=== PATIENT | male | born 1970 | race Caucasian/White ===

== ENCOUNTER → 2017-12-01 15:02 | Outpatient (CLI) | payer BC, SELFPAY | PROVIDERS: PCP Nurse Practitioner Family; Visit Provider Nurse Practitioner Family | DX: G31.84 Mild cognitive impairment of uncertain or unknown etiology (principal) | CPT/HCPCS: 95806 ==

== ENCOUNTER 2019-08-05 15:16 | Outpatient (CLI) | payer BC, SELFPAY ==
[2019-08-05 15:26] VITALS: BP 111/80; PULSE 97; RESP 20; TEMP 36.8; O2SAT 99
[2019-08-05 15:56] VITALS: BP 119/79; PULSE 92; RESP 20; O2SAT 98
[2019-08-05 16:26] VITALS: BP 119/76; PULSE 89; RESP 20; O2SAT 99
[2019-08-05 16:56] VITALS: BP 116/72; PULSE 91; RESP 20; O2SAT 98
[2019-08-05 17:26] VITALS: BP 121/77; PULSE 88; RESP 20; O2SAT 99
== END 2019-08-05 17:39 | disposition home or self-care (01) ==
LOC: RAD 15:17
PROVIDERS: PCP Nurse Practitioner Family; Visit Provider Nurse Practitioner Family
DX: R11.2 Nausea with vomiting, unspecified (principal)
CPT/HCPCS: 96360; 96361

== ENCOUNTER → 2019-10-02 11:15 | Outpatient (CLI) | payer BC, SELFPAY ==
--- NOTE | 2019-10-02 11:22 | CT_ITS ---
PROCEDURE: CT ABDOMEN W CON CLINICAL HISTORY: ABD BLOATING, UPPER ABD PAIN COMPARISON: No exams were available for comparison TECHNIQUE: Axial images obtained with sagittal and coronal reformats. All CT scans at the facility use one or more dose reduction, viz: automated exposure control, ma/kV adjustment per patient size (including targeted exams where dose is matched to indication, i.e. head), or iterative reconstruction technique. FINDINGS: There are mild atelectatic or fibrotic changes in the lung bases with a calcified granuloma in the right middle lobe. On the initial images there is a subtle area of decreased attenuation within the medial segment of the left hepatic lobe. This is seen on series 3, image 33 measuring approximately 6 mm. This is too small to categorize and is not identified on the delayed images. The gallbladder and adrenal glands have an unremarkable appearance. There is splenomegaly at 14 cm. Unremarkable appearing pancreas. There are some small periportal lymph nodes some of which contain calcification. These nodes measure up to 1.5 cm and are nonspecific. There is a complex retroperitoneal mass epicentered in the left psoas muscle. This mass measures 10 cm cephalad caudad, 7.9 cm transverse, and 6 cm AP. The superior and majority of the mass is low density measuring -37 Hounsfield units having the appearance of dirty fat . This mass begins at the L1-L2 level and extends inferiorly to the mid L5 level. Along the inferior aspect of this mass there is increased density measuring up to 61 Hounsfield units. This is displacing the left kidney anteriorly and there is not a good fat plane between the anterior lateral aspect of the mass and the posterior aspect of the left kidney. There is also not a good fat plane between the medial aspect of the mass and the L2-L3 paravertebral soft tissues. 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 There is an additional lesion involving the left ileo psoas muscle measuring 3.4 by 2.4 by 3.5 cm. This does appear to be separate from the larger mass. This lesion also has a dirty fat appearance No retroperitoneal adenopathy. The complete pelvis was not included on this exam which was specified of the abdomen only. There is a tiny umbilical hernia containing fat. There are degenerative changes in the lumbar spine with Schmorl's nodes at L3-L4 and L4-L5. IMPRESSION: 1. Left complex psoas muscle mass as described above suspicious for a retroperitoneal liposarcoma. Cannot exclude capsular invasion of the posterior aspect of the left kidney as well as the left paravertebral soft tissues at L2-L3. Consider MRI abdomen and pelvis without and with contrast for further evaluation. 2. There is an additional fatty lesion involving the left ileo psoas muscle peripherally along the anterior aspect also suspicious for a liposarcoma. 3. There is a subtle 6 mm hypodense lesion of the left hepatic lobe. This is nonspecific. A metastatic focus is not excluded. This could also be better evaluated with MRI Dictated by: Johnny Lopez MD 10/03/2019 07:37 Electronically signed by Johnny Lopez MD in [facility] 10/03/2019 07:37
== END ==
PROVIDERS: PCP Nurse Practitioner Family; Visit Provider Nurse Practitioner Family
DX: R10.10 Upper abdominal pain, unspecified (principal); R14.0 Abdominal distension (gaseous)
CPT/HCPCS: 74160; Q9967

== ENCOUNTER → 2019-10-09 09:16 | Outpatient (CLI) | payer BC, SELFPAY ==
--- NOTE | 2019-10-09 09:18 | MR_ITS ---
PROCEDURE: MR ABDOMEN WO/W CON CLINICAL INDICATION: MASS OF PSOAS MUSCLE, LESION OF LIVER Psoas muscle mass, liver lesion, tenderness and bloating in the upper abdomen with vomiting blood, diarrhea COMPARISON: CT ABDOMEN W CON from 10/02/2019 MR PELVIS WO/W CON from 10/09/2019 TECHNIQUE: Routine multiplanar multi echo sequences are performed without and with gadolinium enhancement. FINDINGS: No focal liver lesions are evident. The subtle abnormality noted on the CT scan in the right hepatic lobe is not reproduced on the MRI. The spleen, adrenal glands, and pancreas have an unremarkable appearance. The complex left psoas muscle mass is once again noted measuring approximately 11 cm cephalad caudad, 7.4 cm transverse, and 6.7 cm AP. The mass is displacing the left kidney laterally. The fat plane between the mass and the inferior medial aspect of the left kidney is not preserved. One cannot exclude the possibility of invasion of the renal capsule. This mass shows mostly increased T1 signal centrally with some decreased T1 signal inferiorly consistent with a fatty mass showing fat suppression. There is some enhancement of the capsule of this mass anteriorly measuring 2 cm and posteriorly and medially measuring 1.7 cm. Posterior medial enhancement is immediately adjacent to the lumbar spine at L2-L3. There is also some mild more diffuse enhancement of the medial wall of the capsule of this mass. The fat plane between the mass and the lateral aspect of the L2-L3 vertebral interspace does not appear preserved. Cannot exclude invasion of the soft tissues at this region. No obvious bony erosive change. There is heterogeneous increase in T2 signal along the inferior margin of the psoas mass corresponding to the area of increased density on the CT scan.. This area also shows moderate heterogeneous contrast enhancement. The inferior aspect of this mass is more isointense to muscle on the T1 weighted images but becomes hyperintense on the STIR images with heterogeneous hyperintensity. In addition there is a small area of increased T2 signal posterior to the inferior aspect of the larger lesion. This smaller area measures 7 mm and may represent a separate area of involvement. This does show some contrast enhancement A 2nd heterogeneous fatty lesion is present in the left iliac fossa along the anterior/lateral aspect of the psoas component of the ileo psoas muscle. This corresponds to the CT abnormality and measures 2.5 cm a transverse and 2.8 cm AP. The axial STIR images of the pelvis does raises the suspicion that these masses may be connected by a thin pedicle IMPRESSION: 1. The liver has an unremarkable appearance. No evidence of hepatic metastasis 2. The left psoas muscle is involved by what appears to be 3 separate complex fatty masses the largest superiorly at 11 x 7 cm with a small lesion just inferior to this larger lesion measuring approximately 7 mm. Just inferior to this area in the left iliac fossa along the anterior aspect of the psoas component of the ileo psoas muscle is an additional lesion measuring 2.5 x 2.8 cm. These are suspicious liposarcomas. The lesions may be connected by thin pedicle within the psoas muscle. The larger lesion is displacing the left kidney anteriorly and abuts the medial aspect of the L2-L3 interspace without a noticeable fat plane between these 2 structures raising the suspicion of some possible capsular invasion of the kidney and perispinal soft tissue invasion. This however is not conclusive. No obvious bony erosion Dictated by: Johnny Lopez MD 10/10/2019 11:40 Electronically signed by Johnny Lopez MD in [facility] 10/10/2019 11:40
== END ==
PROVIDERS: PCP Nurse Practitioner Family; Visit Provider Nurse Practitioner Family
DX: R19.09 Other intra-abdominal and pelvic swelling, mass and lump (principal); K76.9 Liver disease, unspecified
CPT/HCPCS: 72197; 74183; A9576

== ENCOUNTER → 2020-04-20 15:46 | Outpatient (CLI) | payer BC, SELFPAY ==
--- NOTE | 2020-04-20 15:48 | MR_ITS ---
PROCEDURE: MR HEAD/BRAIN WO CON CLINICAL INDICATION: DIZZINESS Dizziness, memory loss, problems focusing. 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 No prior. COMPARISON: No exams were available for comparison TECHNIQUE: Routine multiplanar multi echo sequences are performed without gadolinium enhancement. FINDINGS: No midline shift, mass effect, intracranial hemorrhage, or hydrocephalus. No evidence of acute infarction The cerebellopontine angles, cerebellum, and brainstem are unremarkable. There is normal bentley-white matter differentiation with no abnormal white matter signal intensity evident. The pituitary, optic chiasm, corpus callosum, and craniocervical junction have an unremarkable appearance. No mastoid effusion or sinus air-fluid level. There is pacified right mid ethmoid air cell. IMPRESSION: Negative MRI of the brain without contrast. Dictated by: Johnny Lopez MD 04/21/2020 13:30 Johnny Lopez MD in [facility] 04/21/2020 13:30
== END ==
PROVIDERS: PCP Nurse Practitioner Family; Visit Provider Nurse Practitioner Family
DX: R42 Dizziness and giddiness (principal)
CPT/HCPCS: 70551

== ENCOUNTER → 2020-12-14 10:58 | Outpatient (CLI) | payer BC, SELFPAY ==
[2020-12-14 11:38] LABS: Basophils # 0.1 K/mm3 (0-0.2); Basophils % 0.8 % (0.1-2.0); Eosinophils # 0.3 K/mm3 (0.0-0.4); Eosinophils % 3.5 % (0.1-12.0); Hematocrit 45.4 % (42.0-52.0); Hemoglobin 14.6 g/dL (14.1-18.0); Lymphocytes # 1.8 K/mm3 (0.7-4.5); Lymphocytes % 22.8 % (10-50); Mean Corpuscular HGB Conc 32.1 g/dL (31.8-35.4); Mean Corpuscular Hemoglobin 25.4 pg (27.0-31.2); Mean Corpuscular Volume 79.1 fl (80-94); Mean Platelet Volume 7.1 fl (7.4-10.4); Monocytes # 0.5 K/mm3 (0.1-1.0); Monocytes % 5.6 % (1.7-9.3); Neutrophils # 5.4 K/mm3 (1.8-7.8); Neutrophils % 67.3 % (37.0-80.0); Platelet Count 243 K/mm3 (142-424); Red Blood Count 5.74 M/mm3 (4.60-6.20); Red Cell Distribution Width 15.6 % (11.5-17.5); White Blood Count 8.1 K/mm3 (4.8-10.8)
[2020-12-14 11:55] LABS: Alanine Aminotransferase 51 U/L (12-78); Albumin Level 4.3 g/dl (3.5-5.0); Albumin/Globulin Ratio 1.4 (1.1-1.8); Alkaline Phosphatase 110 U/L (38-126); Anion Gap 13.4 mEq/L (5-15); Aspartate Amino Transferase 43 U/L (17-59); Bilirubin,Total 0.5 mg/dl (0.2-1.3); Blood Urea Nitrogen 11 mg/dl (9-20); Calcium 9.3 mg/dl (8.4-10.2); Carbon Dioxide 29 mmol/L (22.0-30.0); Chloride 94 mmol/L (98-107); Estimated Glomerular Filt Rate 141 ml/min (>60); GFR (African American) 171 ML/MIN (>60); Potassium 4.4 mmoL/L (3.5-5.1); Sodium 132 mmol/L (136-145); Total Protein,Serum 7.3 g/dl (6.3-8.2)
[2020-12-14 12:15] LABS: Glucose 400 mg/dl (74-100)
[2020-12-14 12:16] LABS: Hemoglobin A1C > 14.0 % (4.0-6.0)
[2020-12-14 12:28] LABS: Thyroid Stimulating Hormone 3.39 uIU/mL (0.465-4.68)
[2020-12-14 13:02] LABS: Vitamin B12 659 pg/mL (239-931)
[2020-12-14 13:13] LABS: Folate 8.97 ng/mL
[2020-12-16 10:57] LABS: Albumin 3.6 g/dL (2.9-4.4); Alpha-1-Globulin 0.2 g/dL (0.0-0.4); Alpha-2-Globulin 0.9 g/dL (0.4-1.0); Protein, Total 7.3 g/dL (6.0-8.5)
[2020-12-16 22:25] LABS: Interpretation(See Below) Comment: (.)
== END ==
PROVIDERS: Visit Provider Nurse Practitioner Family
DX: R42 Dizziness and giddiness (principal); R20.0 Anesthesia of skin; R20.2 Paresthesia of skin; R26.89 Other abnormalities of gait and mobility
CPT/HCPCS: 36415; 80053; 82607; 82746; 83036; 84155; 84165; 84443; 85025; 86334

== ENCOUNTER → 2020-12-16 14:46 | Outpatient (CLI) | payer BC, SELFPAY | PROVIDERS: PCP Nurse Practitioner Family; Visit Provider Nurse Practitioner Family | DX: R42 Dizziness and giddiness (principal); R55 Syncope and collapse | CPT/HCPCS: 93225; 93226 ==

== ENCOUNTER → 2020-12-29 07:21 | Day surgery (SDC) | payer BC, SELFPAY ==
[2020-12-29 08:05] VITALS: BP 146/89; PULSE 80; RESP 18; TEMP 36.2; O2SAT 96
[2020-12-29 08:12] LABS: POC Glucose,Bedside 344 (70-110)
--- NOTE | 2020-12-30 09:04 | HMH.TILT ---
Findings:: Procedure: Upright Tilt Table Test Requesting Physician: Doreen Goetz MD Indication: Recurrent dizziness and near syncope. Is patient on beta blockers: No Pretest Vital Signs: HR 80 and sinus rhythm, BP 146/89, O2Sats 96%. Patient's blood sugar was 344 pretest. Summary: Patient was prepared per protocol, connected to telemetry, blood pressure, and O2 sat monitors and then placed in the upright position at 75 degrees for 35 minutes. While upright he had no symptoms and denied any dizziness, lightheadedness, near syncope or syncope. His rhythm was normal sinus throughout and his vital signs remained within normal limits. Lowest BP was 117/73 after 20 minutes being upright and highest BP was 156/92 after 10 minutes upright. Lowest HR was 85 bpm which occurred when first placed in the upright position and the fastest was 101 bpm after 35 minutes upright. O2 sats were low to mid 90s throughout. Complications: None Conclusion: Unremarkable upright tilt table test
== END ==
PROVIDERS: PCP Nurse Practitioner Family; Visit Provider Specialist
DX: R42 Dizziness and giddiness (principal); R55 Syncope and collapse
CPT/HCPCS: 82962; 93660

== ENCOUNTER → 2021-04-22 12:05 | Outpatient (CLI) | payer BC, SELFPAY ==
--- NOTE | 2021-04-22 12:09 | XR_ITS ---
PROCEDURE: XR CERVICAL SPINE 5V CLINICAL INDICATION: CERVICALGIA COMPARISON: No exams were available for comparison FINDINGS: No fracture or dislocation. No lytic or blastic change. There is normal mineralization. Degenerative disc disease C5-C6 with endplate hypertrophy. There is slight reversal of the cervical lordosis at C4-C5. Foraminal narrowing is present at C5-C6 on the right. Incidental note made of carotid artery calcifications. Other findings:None. IMPRESSION: Degenerative disc disease C5-C6 with right-sided foraminal narrowing Dictated by: Johnny Lopez MD 04/22/2021 12:42 Johnny Lopez MD in [facility] 04/22/2021 12:42
--- NOTE | 2021-04-22 12:29 | XR_ITS ---
PROCEDURE: XR HIP RT 2-3V W/PELVIS CLINICAL INDICATION: PAIN Right hip pain COMPARISON: CR HIP2R HIP-2 VIEWS-RT from 08/14/2015 FINDINGS: No fracture or dislocation is evident. No significant degenerative change. No lytic or blastic change. Unremarkable soft tissues. IMPRESSION: No acute findings. Dictated by: Johnny Lopez MD 04/22/2021 12:42 Johnny Lpoez MD in [facility] 04/22/2021 12:42
== END ==
PROVIDERS: PCP Internal Medicine Adolescent Medicine; Visit Provider Internal Medicine Adolescent Medicine
DX: M54.2 Cervicalgia (principal); M25.551 Pain in right hip
CPT/HCPCS: 72050; 73502

== ENCOUNTER → 2021-04-23 07:03 | Outpatient (CLI) | payer BC, SELFPAY ==
[2021-04-23 07:40] LABS: Basophils # 0.1 K/mm3 (0-0.2); Basophils % 1.4 % (0.1-2.0); Eosinophils # 0.3 K/mm3 (0.0-0.4); Eosinophils % 3.1 % (0.1-12.0); Hematocrit 45.2 % (42.0-52.0); Lymphocytes # 3.2 K/mm3 (0.7-4.5); Mean Corpuscular HGB Conc 33.3 g/dL (31.8-35.4); Mean Corpuscular Hemoglobin 26.8 pg (27.0-31.2); Mean Corpuscular Volume 80.6 fl (80-94); Mean Platelet Volume 7.8 fl (7.4-10.4); Monocytes # 0.4 K/mm3 (0.1-1.0); Neutrophils # 4.1 K/mm3 (1.8-7.8); Neutrophils % 50.6 % (37.0-80.0); Platelet Count 301 K/mm3 (142-424); Red Blood Count 5.61 M/mm3 (4.60-6.20); White Blood Count 8.1 K/mm3 (4.8-10.8)
[2021-04-23 07:49] LABS: Hemoglobin A1C > 14.0 % (4.0-6.0)
[2021-04-23 08:35] LABS: Alanine Aminotransferase 39 U/L (12-78); Albumin Level 4.4 g/dl (3.5-5.0); Albumin/Globulin Ratio 1.5 (1.1-1.8); Alkaline Phosphatase 88 U/L (38-126); Anion Gap 15.1 mEq/L (5-15); Aspartate Amino Transferase 32 U/L (17-59); Bilirubin,Total 0.6 mg/dl (0.2-1.3); Blood Urea Nitrogen 17 mg/dl (9-20); Calcium 9.5 mg/dl (8.4-10.2); Carbon Dioxide 29 mmol/L (22.0-30.0); Chloride 96 mmol/L (98-107); Creatine Kinase 58 U/L (55-170); Estimated Glomerular Filt Rate 118 ml/min (>60); GFR (African American) 143 ML/MIN (>60); Globulin 2.9 g/dL (1.3-3.2); Potassium 4.1 mmoL/L (3.5-5.1); Sodium 136 mmol/L (136-145); Total Protein,Serum 7.3 g/dl (6.3-8.2)
[2021-04-23 08:39] LABS: Glucose 417 mg/dl (74-100)
[2021-04-23 08:53] LABS: 25-OH Vitamin D, Total 34.5 ng/mL (30-100)
[2021-04-23 09:04] LABS: Thyroid Stimulating Hormone 7.46 uIU/mL (0.465-4.68)
[2021-04-23 09:22] LABS: Vitamin B12 656 pg/mL (239-931)
== END ==
PROVIDERS: Visit Provider Internal Medicine Adolescent Medicine
DX: M79.10 Myalgia, unspecified site (principal); M12.9 Arthropathy, unspecified
CPT/HCPCS: 36415; 80053; 82306; 82533; 82550; 82607; 83036; 84443; 85025

== ENCOUNTER 2021-06-03 09:00 | Outpatient (RCR) | payer BC, SELFPAY ==
--- NOTE | 2021-05-28 09:04 | HMH.PTOPEV ---
PT Outpatient Evaluation Rehab PT Outpatient Evaluation Start: 05/28/21 08:39 Freq: Status: Active Protocol: Document 05/28/21 08:39 UYEN (Rec: 05/28/21 09:04 UYEN [id number]) Electronically Signed By Brian Griffin, PT 05/28/21 08:39 Outpatient Therapy Subjective History Subjective History Patient is a 50 year old male presenting to outpatient PT with reports of chronic cervicothoracic spine and lumbar spine pain. Symptoms have progressively gotten worse over the past year since returning to work. Patient reports BUE neuropathy and RLE radicular symptoms. Patient is in remission of liposarcoma cancer. Other comorbidities include hx of diabetes and OA. Chief Complaint Pain,Stiff,Paresthesia Symptom Type Ache,Stabbing,Numbness, Tingling Symptoms Relieved By Rest/Positioning,Heat,OTC Meds Symptoms Aggravated By Bending/Stooping,Physical Activity,Lifting Current Functional Limitations Reaching,Lifting,Housework, Desk Work/Reading,Driving, Sleeping Symptom Description Constant but Variable Level of pain today (0-10) 7 Pain scale - at its best (0-10) 4 Pain scale - at its worst (0-10) 8 Cervical Eval Palpation Cervical Muscles R Thoracic Paraspinals Cervical/Thoracic Palpation Findings Tenderness Posture Head/C-Spine Posture Sitting Position Excess Extension Flexibility Deficits Pectoralis Minor Muscle Length (R) Moderate Tightness,(L) Moderate Tightness Passive Joint Mobility Cervical PIVM Dec: R OA L OA R AA L AA R C2/3 L C2/3 R C3/4 L C3/4 R C4/5 L C4/5 R C5/6 L C5/6 R C6/7 L C6/7 R C7/T1 L C7/T1 AROM Cervical Spine Extension Active Range of 50 Motion (degrees) Cervical Spine Flexion Active Range of 54 Motion (degre
== END 2021-06-03 09:05 | disposition home or self-care (01) ==
LOC: PT 09:00
PROVIDERS: PCP Internal Medicine Adolescent Medicine; Visit Provider Internal Medicine Adolescent Medicine
DX: M54.2 Cervicalgia (principal); M54.5 Low back pain
CPT/HCPCS: 97010; 97014; 97110; 97140; 97163; G0283

== ENCOUNTER → 2021-09-28 17:43 | Outpatient (CLI) | payer BC, SELFPAY | PROVIDERS: Visit Provider Nurse Practitioner | DX: Z20.822 Contact with and (suspected) exposure to COVID-19 (principal) | CPT/HCPCS: C9803; U0003; U0005 ==

== ENCOUNTER → 2021-10-01 09:49 | Outpatient (CLI) | payer BC, SELFPAY ==
--- NOTE | 2021-10-01 09:56 | XR_ITS ---
FINAL REPORT CLINICAL HISTORY: LT LOWER RIB PAIN FINDINGS: LEFT RIB SERIES 4 views of the left ribs show no fractures. There is no pneumothorax or pleural fluid collection. Frontal chest radiograph demonstrates linear scarring in both lungs. There is a calcified subcarinal lymph node. There is a right lower lobe calcified granuloma. IMPRESSION: No acute process. No pneumothorax. Reviewed, Interpreted and Dictated by Jesús Martinez MD Transcribed by Grazyna Muir Authenticated by Jesús Martinez MD on 10/01/2021 11:14:28 AM [facility]
== END ==
PROVIDERS: PCP Internal Medicine Adolescent Medicine; Visit Provider Internal Medicine Adolescent Medicine
DX: R07.81 Pleurodynia (principal)
CPT/HCPCS: 71101

== ENCOUNTER → 2021-10-22 08:11 | Outpatient (CLI) | payer BC, SELFPAY ==
[2021-10-23 09:18] LABS: Covid-19 Nasal PCR Sendout Lex NOT DETECTED
== END ==
PROVIDERS: PCP Internal Medicine Adolescent Medicine; Visit Provider Nurse Practitioner
DX: Z20.822 Contact with and (suspected) exposure to COVID-19 (principal)
CPT/HCPCS: C9803; U0004; U0005

== ENCOUNTER → 2022-01-13 10:10 | Outpatient (CLI) | payer BC, SELFPAY ==
--- NOTE | 2022-01-13 10:15 | US_ITS ---
FINAL REPORT CLINICAL HISTORY: RUQ PAIN. TENDERNESS WITHOUT REBOUND TENDERNESS FINDINGS: Sonographic images of the right upper quadrant were obtained. The pancreas is partially obscured.The liver has an unremarkable appearance.There is a small amount of sludge within the gallbladder without evidence of gallstones.There is no evidence of biliary ductal dilatation.The common duct measures 3 mm. Limited images of the right kidney are unremarkable. IMPRESSION: Gallbladder sludge without evidence of gallstones. Reviewed, Interpreted and Dictated by Fransisco Schroeder III, MD Transcribed by Shelly Kirk Authenticated by Fransisco Schroeder III, MD on 01/13/2022 01:02:05 PM [facility]
== END ==
PROVIDERS: PCP Internal Medicine Adolescent Medicine; Visit Provider Nurse Practitioner Family
DX: R10.11 Right upper quadrant pain (principal); R10.811 Right upper quadrant abdominal tenderness
CPT/HCPCS: 76705